=== PATIENT | female | born 1975 | race Two or more races ===

== ENCOUNTER 2024-04-04 17:31 | Inpatient (IN) | payer OTHER ==
[2024-04-04 18:21] VITALS: BMI 49.9
[2024-04-04] MEDS ORDERED: NICOTINE POLACRILEX 2 MG GUM BUC PRN (19:26)
[2024-04-04] MEDS ORDERED: POLYETHYLENE GLYCOL (HEALTHYLAX) 3350 17 GM PACKET PO PRN (19:26)
[2024-04-04] MEDS ORDERED: MAGNESIUM HYDROX 2400MG/30ML ORAL SUSPENSION 30 ML CUP PO PRN (19:26)
[2024-04-04] MEDS ORDERED: guaiFENesin 600 MG TABLET.ER (FP) PO PRN (19:26)
[2024-04-04] MEDS ORDERED: BENZONATATE 200 MG CAPSULE PO PRN (19:26)
[2024-04-04] MEDS ORDERED: BENZOCAINE/MENTHOL (CHLORASEPTIC ) LOZENGE MM PRN (19:26)
[2024-04-04] MEDS ORDERED: NICOTINE POLACRILEX 2 MG LOZENGE BC PRN (19:26)
[2024-04-04] MEDS ORDERED: DICYCLOMINE HCL 10 MG CAPSULE PO PRN (19:26)
[2024-04-04] MEDS ORDERED: diazePAM 5 MG TABLET PO PRN (19:32)
[2024-04-04] MEDS ORDERED: ALBUTEROL SO4 HFA INHALER IH PRN (19:48)
[2024-04-04] MEDS: diazePAM 5 MG TABLET PO SCH (22:43)
[2024-04-04] MEDS: MELATONIN 5 MG TABLETS PO SCH (22:43)
[2024-04-04] MEDS: METHOCARBAMOL 500 MG TABLET PO PRN (22:44)
[2024-04-04] MEDS: DIVALPROEX SODIUM 250 MG TABLET E.C. PO SCH (22:44)
[2024-04-04] MEDS: APIXABAN 5 MG TABLET PO SCH (22:44)
[2024-04-04] MEDS: ATORVASTATIN CA 20 MG TABLET (FP) PO SCH (22:44)
[2024-04-04] MEDS: BUDESONIDE/FORMETEROL FUMARATE 160/4.5 mcg INHALER IH SCH (22:44)
[2024-04-04] MEDS: levETIRAcetam 500 MG TABLET (FP) PO SCH (22:44)
[2024-04-04] MEDS: THIAMINE 100 MG TABLET PO SCH (22:45)
[2024-04-04] MEDS: LOPERAMIDE HCL 2 MG CAPSULE PO PRN (23:33)
[2024-04-05] MEDS: diazePAM 5 MG TABLET PO SCH (05:41)
[2024-04-05] MEDS: metFORMIN HCL 500 MG TABLET (FP) PO SCH ×2 (06:50→17:17)
[2024-04-05] MEDS: PRENATAL VITAMINS W/ FOLIC ACID TABLET (FP) PO SCH (10:20)
[2024-04-05] MEDS: SERTRALINE HCL 50 MG TABLET (FP) PO SCH (10:26)
[2024-04-05] MEDS: TOPIRAMATE 100 MG TABLET PO SCH (10:27)
[2024-04-05] MEDS ORDERED: ALBUTEROL SO4 0.083% IH SOL 2.5 MG/3 ML VIAL.NEB. NEB PRN (11:12)
[2024-04-05] MEDS: DIVALPROEX SODIUM 250 MG TABLET E.C. PO SCH (14:01)
[2024-04-05] MEDS: QUEtiapine FUMARATE 400 MG TABLET PO SCH (22:08)
[2024-04-06] MEDS: diazePAM 5 MG TABLET PO SCH (05:58)
[2024-04-06] MEDS: ACETAMINOPHEN 325 MG TABLET (FP) PO PRN (10:27)
[2024-04-07] MEDS: diazePAM 5 MG TABLET PO ONE (05:58)
[2024-04-07] MEDS ORDERED: diazePAM 5 MG TABLET PO SCH (06:00)
[2024-04-07] MEDS: MAG HYDROX/AL HYDROX/SIMETH 30 ML UNIT-DOSE CUP PO PRN (19:17)
[2024-04-09 09:36] VITALS: BP 149/91; PULSE 82; RESP 18; TEMP 97.8
== END 2024-04-09 09:40 | disposition home or self-care (01) | DRG 774 ==
LOC: YASAS 17:31 → Y6N 19:39 → UNDODISIN 04-08 10:52
PROVIDERS: ADMIT Allergy & Immunology; ATTEND Surgery
PROC: HZ2ZZZZ Detoxification Services for Substance Abuse Treatment (ICD-10-PCS; principal; 2024-04-04)
DX: F10.230 Alcohol dependence with withdrawal, uncomplicated (principal); F14.20 Cocaine dependence, uncomplicated; F12.20 Cannabis dependence, uncomplicated; F17.210 Nicotine dependence, cigarettes, uncomplicated; F25.0 Schizoaffective disorder, bipolar type; F19.282 Other psychoactive substance dependence with psychoactive substance-induced sleep disorder; F19.280 Other psychoactive substance dependence with psychoactive substance-induced anxiety disorder; G40.909 Epilepsy, unspecified, not intractable, without status epilepticus; E78.5 Hyperlipidemia, unspecified; E11.9 Type 2 diabetes mellitus without complications; Z79.84 Long term (current) use of oral hypoglycemic drugs; J45.20 Mild intermittent asthma, uncomplicated; Z86.718 Personal history of other venous thrombosis and embolism; Z79.01 Long term (current) use of anticoagulants; Z86.711 Personal history of pulmonary embolism; Z62.810 Personal history of physical and sexual abuse in childhood; Z91.410 Personal history of adult physical and sexual abuse; Z63.8 Other specified problems related to primary support group; Z63.0 Problems in relationship with spouse or partner; Z88.0 Allergy status to penicillin; Z88.1 Allergy status to other antibiotic agents
CPT/HCPCS: 80305; 81025; 82962; 87811; 93005; 93010